=== PATIENT | male | born 1980 | race Caucasian/White ===

== ENCOUNTER 2018-01-22 09:29 | Emergency (ER) | payer SELFPAY ==
[~2018-01-22] VITALS: Ht 188 cm; Wt 108.0 kg
[2018-01-22 09:37] VITALS: Ht 188 cm; Wt 108.0 kg
[2018-01-22 10:34] LABS: BASOPHIL % 0.7 % (0-2); PLATELET COUNT 154 x10^3mcL (130-400)
[2018-01-22 10:35] LABS: RED CELL DISTRIBUTION WIDTH 15.5 % (11.5-14.5)
[2018-01-22 10:38] LABS: CALCIUM 8.3 mg/dL (8.5-10.1); CARBON DIOXIDE 29.1 mmol/L (21-32); CHLORIDE SERUM 102 mmol/L (98-107); CREATININE SERUM 0.9 mg/dL (0.7-1.3); GFR1 > 60 mL/min; GLUCOSE SERUM 96 mg/dL (74-106); POTASSIUM SERUM 4.2 mmol/L (3.5-5.1); SODIUM SERUM 140 mmol/L (136-145)
[2018-01-22 11:55] VITALS: BP 156/101
== END 2018-01-22 11:55 | disposition home or self-care (01) ==
LOC: ED 09:29
PROVIDERS: Emergency Medicine
DX: I82.402 Acute embolism and thrombosis of unspecified deep veins of left lower extremity (principal); F17.200 Nicotine dependence, unspecified, uncomplicated; I10 Essential (primary) hypertension
CPT/HCPCS: 36415; J1885